=== PATIENT | female | born 1990 | race Caucasian/White ===

== ENCOUNTER → 2017-02-08 | Outpatient (CLI) | payer OTHER ==
[~2017-02-08] MED LIST: ABL10 PO; ALPR2TAB6 PO; AZIT500T3 PO; BUPRTAB PO; DROS1TAB24 PO; FRCT/ PO; ZOLP1TAB PO; ZONI100C2
== END | disposition home or self-care (01) ==
LOC: C.PAPS 11:29
PROVIDERS: ATTEND Physician Assistant
DX: Z01.419 Encounter for gynecological examination (general) (routine) without abnormal findings (principal)